=== PATIENT | male | born 1995 | race Two or more races ===

== ENCOUNTER → 2017-01-01 | Outpatient (CLI) | payer OTHER ==
--- NOTE | 2017-01-01 19:28 | REP ---
RIGHT ANKLE, FOUR VIEWS: There is no evidence of an acute fracture, dislocation or intrinsic bone disease. The ankle mortise is anatomic. IMPRESSION: No fracture or dislocation. Signed by Joss Weiner MD 01/02/2017 02:42 P
--- NOTE | 2017-01-01 19:29 | REP ---
RIGHT FOOT SERIES: Four views of the right foot are performed. There appears to be a nondisplaced fracture of the distal fifth metatarsal. I see no other definite acute fracture or dislocation. IMPRESSION: Nondisplaced fracture distal 5th metatarsal. Signed by Joss Weiner MD 01/02/2017 02:43 P
== END ==
LOC: M LRY 17:16
PROVIDERS: ATTEND Nurse Practitioner Family
DX: M79.671 Pain in right foot (principal)